=== PATIENT | male | born 1970 | race Caucasian/White ===

== ENCOUNTER → 2019-08-08 | Outpatient (CLI) | payer OTHER ==
[~2019-08-08] MED LIST: DOXE10; Oxycodone-Apap1 EAC3; TRAM50; VARE1; Zofran Odt4 MG SL
[2019-08-11 07:08] LABS: COTININE Negative ng/mL ({null, Cutoff=300})
== END | disposition home or self-care (01) ==
LOC: LAB SHORT 15:15 → LAB 15:15
PROVIDERS: Orthopaedic Surgery
DX: M16.11 Unilateral primary osteoarthritis, right hip (principal); F17.200 Nicotine dependence, unspecified, uncomplicated

== ENCOUNTER 2019-10-09 14:58 | Inpatient (IN) | payer OTHER ==
[~2019-10-09] VITALS: Ht 190.5 cm; Wt 111.5 kg
[~2019-10-09 14:58] MED LIST changes: -DOXE10; +DOXE10 PO; -TRAM50; +TRAM50 PO
--- NOTE | 2019-10-10 08:06 | NUR ---
"DAY SURGERY RN | 4 DAYS OF MUPORICIN PATIENT STATES DUE TO HOLIDAY THAT THEY WERE ONLY ABLE TO COMPLETE 4 DAYS OF MUPORICIN (NORMAL TIME FRAME IS 5 DAYS). MADE HEMALATHA MUSIC RESEARCHER AWARE OF SITUATION. HE CLARIFIED WITH DR. CARRILLO, AND DR. CARRILLO SAID THAT THE SURGERY WAS STILL GOOD TO GO WITH THE 4 DAYS. NO OTHER ISSUES."
--- NOTE | 2019-10-10 08:26 | NUR ---
"DAY SURGERY RN | TO OR BOTH DOCTORS AND BIOMEDICAL ENGINEERING AIDE HAVE SEEN. REPORT TO ALEX MANDEL. TO OR."
--- NOTE | 2019-10-10 18:43 | NUR ---
SHIFT SUMMARY PT A&OX4, VSS, S/P R JUAN AQUACEL CDI. PAIN MANAGED PER EMAR. AILEEN PO, DENIES N&V. PHYSICAL THERAPY EVAL'D; AMB SBA W/FWW & GB; UP TO CHAIR. VOIDING WELL. FAMILY AT BEDSIDE. WILL REPORT TO ONCOMING NOC RN.
[2019-10-11 03:56] LABS: BASOPHILS ABSOLUTE AUTO 0.02 K/mm3 (0.00-0.23); BASOPHILS PERCENT AUTO 0 % (0-2); EOSINOPHILS PERCENT AUTO 0 % (0-6); Hematocrit 35.5 % (37.0-53.0); Hemoglobin 11.9 g/dL (13.5-17.5); IMMATURE GRAN ABSOLUTE AUTO 0.07 K/mm3 (0.00-0.10); IMMATURE GRAN PERCENT AUTO 1 % (0-1); LYMPHOCYTES ABSOLUTE AUTO 1.87 K/mm3 (0.84-5.20); LYMPHOCYTES PERCENT AUTO 13 % (21-46); MONOCYTES ABSOLUTE AUTO 1.05 K/mm3 (0.16-1.47); MONOCYTES PERCENT AUTO 8 % (4-13); Mean Corpuscular HGB 30.2 pg (26.0-34.0); Mean Corpuscular HGB Conc 33.5 g/dL (31.5-36.5); Mean Corpuscular Volume 90 fL (80-100); NEUTROPHILS ABSOLUTE AUTO 11.03 K/mm3 (1.96-9.15); NEUTROPHILS PERCENT AUTO 79 % (41-73); Platelet Count 203 K/mm3 (150-400); RDW Coefficient Variation 12.4 % (11.7-14.2); RDW Standard Deviation 40.7 fL (35.1-46.3); Red Blood Cell Count 3.94 M/mm3 (4.30-5.90); White Blood Cell Count 14.04 K/mm3 (4.00-11.30)
[2019-10-11 04:13] LABS: Anion Gap 7 mmol/L (6-16); Blood Urea Nitrogen 20 mg/dL (8-24); Bun/Creatinine Ratio 18.5 (12.0-20.0); CO2, Blood 24 mmol/L (21-32); Calcium, Blood 8.1 mg/dL (8.5-10.1); Chloride, Blood 109 mmol/L (98-108); Creatinine, Blood 1.08 mg/dL (0.60-1.20); Glomerular Filtration Rate >60 (60-); Glucose, Blood 136 mg/dL (70-99); Potassium, Blood 4.1 mmol/L (3.5-5.5); Sodium, Blood 140 mmol/L (136-145)
--- NOTE | 2019-10-11 04:56 | NUR ---
PATIENT REFUSED CHAIR TILL LATER THIS AM.
--- NOTE | 2019-10-11 05:47 | NUR ---
sHIFT SUMMARY PATIENT HAS BEEN UP IN ROOM TO BR AND IN HALLWAYS WITH FWW, GAIT BELT, AND ONE PERSON STAND BY ASSIST. HE HAS HAD DISCOMFORT IN HIS RT HIP AND CONTINURED NUMBNESS ON THE TOP OF HIS THIGH THAT HAS SLOWLY DECREASED IN SIZE. HIS DRESSING IS CLEAR AND SECURE. HIS PAIN HAS BEEN WELL CONTROLED WITH PRESCRIBED MEDICATIONS. S/O REMAINED IN ROOM T/O NIGHT. NO ACUTE CHANGES.
[2019-10-11] MEDS ORDERED: Percocet 5-3251 EACH PO (08:59)
[2019-10-11] MEDS ORDERED: ASPI81CH PO (09:00)
--- NOTE | 2019-10-11 10:50 | NUR ---
1015 DISCHARGED TO HOME
--- NOTE | 2019-10-12 11:01 | NUR ---
10/12/19 1101 Ifeoma Sarmiento VERIFICATIONS: EDIT CHART.
== END 2019-10-11 10:28 | disposition home or self-care (01) | DRG 470 ==
LOC: SURS 10-10 06:51 → PRE IP 10-10 08:15 → SURS 10-10 11:30
PROVIDERS: ADMIT Orthopaedic Surgery
PROC: 0SR904A Replacement of Right Hip Joint with Ceramic on Polyethylene Synthetic Substitute, Uncemented, Open Approach (ICD-10-PCS; principal; 2019-10-10 08:15)
DX: M16.11 Unilateral primary osteoarthritis, right hip (principal); I10 Essential (primary) hypertension; E78.5 Hyperlipidemia, unspecified; G47.33 Obstructive sleep apnea (adult) (pediatric); E66.9 Obesity, unspecified; Z68.30 Body mass index [BMI] 30.0-30.9, adult
CPT/HCPCS: 36415; 72170; 80048; 85025; 86850; 86900; 86901; 88300; 97110; 97116; 97162; 97530; C1769; C1776; J0171; J0690; J0735; J1100; J1885; J2250; J2405; J2704; J2795; J3010; J7120